=== PATIENT | male | born 1995 | race Caucasian/White ===

== ENCOUNTER 2022-05-28 16:27 | Emergency (ER) | payer BC ==
--- NOTE | 2022-05-28 16:39 | ED Physician Documentation ---
PD HPI CHEST PAIN - Stated complaint Stated Complaint: CHEST PX - Chief complaint Chief Complaint: Cardiac - History obtained from History obtained from: Patient - Additional information Additional information: Otherwise healthy 27-year-old gentleman although has a history of tobacco abuse presents with chest pain starting at noon today. 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 It was worse with deep breathing and worse with bending. He is not short of breath. The pain does not radiate. He has had this before but it was brief. He denies pedal edema or calf pain. Other than smoking he has no other risk factors identifiable for coronary disease, specifically no hypercholesterolemia, no hypertension, no diabetes, no family history of early coronary disease. Review of Systems Constitutional: reports: Reviewed and negative Eyes: reports: Reviewed and negative Cardiac: reports: Chest pain / pressure. denies: Palpitations Respiratory: denies: Dyspnea, Cough PD PAST MEDICAL HISTORY - Present Medications Home Medications: Ambulatory Orders Medication Instructions Recorded Confirmed Azithromycin [Zithromax] 1 tab PO DAILY #4 tab 05/28/22 - Allergies Allergies/Adverse Reactions: Allergies Allergy/AdvReac Type Severity Reaction Status Date / Time No Known Drug Allergies Allergy Verified 05/28/22 16:36 PD ED PE NORMAL - Vitals Vital signs reviewed: Yes - General General: Alert and oriented X 3, No acute distress - Neck Neck: Supple, no meningeal sign, No bony TTP - Cardiac Cardiac: RRR, No murmur - Respiratory Respiratory: No respiratory distress, Clear bilaterally - Abdomen Abdomen: Normal bowel sounds, Soft, Non tender - Back Back: No CVA TTP, No spinal TTP - Derm Derm: Normal color, Warm and dry - Extremities Extremities: No edema, No calf tenderness / cord - Neuro Neuro: Alert and oriented X 3, Normal speech Results - Vitals Vitals: Vital Signs - 24 hr 05/28/22 16:33 Temperature 36.7 C Heart Rate 99 Respiratory 16 Rate Blood Pressure 152/89 H O2 Saturation 99 Oxygen O2 Source Room air - EKG (time done) 1635 Rate: Rate (enter#) (76) Rhythm: NSR [place]: Normal Intervals: Normal IN QRS: Normal Ischemia: Normal ST segments - Labs Labs: Laboratory Tests 05/28/22 16:48 Troponin I High Sens 2.6 PD MEDICAL DECISION MAKING - ED course ED course: This young man presents with pleuritic reproducible chest pain, his heart score is 1 for smoking. Chest x-ray did demonstrate potential mild bibasilar pneumonia and when queried he did admit to an increased cough. We will treat with azithromycin. He was counseled to quit smoking. Departure - Departure Disposition: 01 Home, Self Care Clinical Impression: Pleuritic chest pain Pneumonia Qualifiers: Pneumonia type: due to unspecified organism Laterality: bilateral Lung location: lower lobe of lung Qualified Code(s): J18.9 - Pneumonia, unspecified organism Condition: Good Record reviewed to determine appropriate education?: Yes Instructions: Pneumonia Dc, ED Chest Pain NonCardiac Prescriptions: Azithromycin [Zithromax] 1 tab PO DAILY #4 tab Comments: Return for new or worsening symptoms, call your primary care physician for follow-up visit, call tomorrow for next available appointment.
--- NOTE | 2022-05-28 16:52 | XRAY Report ---
PROCEDURE: Chest 1 View X-Ray INDICATIONS: chest pain TECHNIQUE: One view of the chest was acquired. COMPARISON: None FINDINGS: Surgical changes and devices: None. Lungs and pleura: No pleural effusions or pneumothorax. Mild appearance of increased interstitial ma rkings. Mediastinum: Mediastinal contours appear normal. Heart size is normal. Bones and chest wall: No suspicious bony lesions. Overlying soft tissues appear unremarkable. IMPRESSION: Mild appearance of increased interstitial markings particularly within the bases. While this could re present edema, development of interstitial infection or inflammation such as pneumonia cannot be excl uded. Reviewed by: Eugenia Angel MD on 05/28/2022 4:50 PM PDT Approved by: Eugenia Angel MD on 05/28/2022 4:50 PM PDT Station ID: [id number]
[2022-05-28] MEDS ORDERED: AZITHROMYCIN 250 MG TABLET PO STA (17:23)
[2022-05-28 17:30] VITALS: BP 118/99
== END 2022-05-28 17:34 | disposition home or self-care (01) ==
LOC: ED 16:27
DX: J18.9 Pneumonia, unspecified organism (principal); R07.81 Pleurodynia; Z87.891 Personal history of nicotine dependence
CPT/HCPCS: 36415; 71045; 84484; 93005; 99282; 99284; A9270